=== PATIENT | male | born 1965 | race Caucasian/White ===

== ENCOUNTER 2021-09-08 15:25 | Emergency (ER) | payer SELFPAY ==
[~2021-09-08] VITALS: Ht 167.6 cm; Wt 59.0 kg
[2021-09-08 15:29] VITALS: BP 150/60
[2021-09-08] MEDS ORDERED: BACITRACIN ZINC OINT UDPKT TOP ONE (16:00)
[2021-09-08] MEDS ORDERED: LIDOCAINE HCL/PF 1% 10 MG/ML 5ML VIAL INFIL ONE (16:00)
[2021-09-08] MEDS ORDERED: TETANUS, DIPHTHERIA, PERTUSSIS VAC/PF 0.5ML (>10YR OLD) IM ONE (16:00)
[2021-09-08] MEDS ORDERED: AMOX1TAB16 MT (18:06)
[2021-09-08] MEDS ORDERED: HYDR-4001 MT (18:07)
== END 2021-09-08 19:05 | disposition home or self-care (01) ==
LOC: ER 15:25
DX: S06.9X0A Unspecified intracranial injury without loss of consciousness, initial encounter (principal); S01.81XA Laceration without foreign body of other part of head, initial encounter; R40.2412 Glasgow coma scale score 13-15, at arrival to emergency department; Y08.89XA Assault by other specified means, initial encounter; Y93.9 Activity, unspecified; Y92.488 Other paved roadways as the place of occurrence of the external cause
CPT/HCPCS: 12011; 70450; 70486; 99284; J3490